=== PATIENT | female | born 1975 | race Asian ===

== ENCOUNTER 2019-03-25 08:03 | Day surgery (SDC) | payer MEDICAID ==
[~2019-03-25 08:03] MED LIST: CEFAZOLIN 2 GM/50 ML (PMX) 50 ML IVPB; SOD CHLORIDE 0.9% 1,000 ML IV
[2019-03-25] MEDS ORDERED: MIDAZOLAM 1 MG/ML 2 ML INJ (12:11)
[2019-03-25] MEDS ORDERED: METOCLOPRAMIDE 10 MG INJ (12:22)
[2019-03-25] MEDS ORDERED: DESFLURANE 15 MIN (12:22)
[2019-03-25] MEDS ORDERED: EPHEDrine 25 MG/5 ML SYG (12:22)
[2019-03-25] MEDS ORDERED: CEFAZOLIN 1 GM INJ (12:22)
[2019-03-25] MEDS ORDERED: FENTAnyl 50 MCG/ML VIAL (12:22)
[2019-03-25] MEDS ORDERED: PROPOFOL 20 ML (12:22)
[2019-03-25] MEDS ORDERED: ONDANSETRON 4 MG INJ (12:23)
[2019-03-25] MEDS ORDERED: ONDANSETRON 4 MG INJ IV (12:30)
[2019-03-25] MEDS ORDERED: FENTAnyl 50 MCG/ML VIAL IV ×3 (12:30)
[2019-03-25] MEDS ORDERED: DIPHENHYDRAMINE 50 MG INJ IV (12:30)
[2019-03-25] MEDS ORDERED: HYDROmorphONE 1 MG/5 ML IV SYRINGE IV ×3 (12:30)
[2019-03-25] MEDS ORDERED: OXYCODONE/ACETAMINOPHEN (5/325) TAB PO ×2 (12:30)
[2019-03-25] MEDS ORDERED: MEPERIDINE 25 MG INJ IV (12:30)
[2019-03-25] MEDS: ISOSULFAN BLUE 1% 5 ML INJ SC (12:42)
[2019-03-25] MEDS ORDERED: HYDROmorphONE 2 MG/ML SYG (12:54)
[2019-03-25] MEDS ORDERED: HYDROCODONE/APAP (7.5/325) TAB PO (14:00)
== END 2019-03-25 16:00 | disposition home or self-care (01) ==
LOC: SDS 08:03
DX: D05.11 Intraductal carcinoma in situ of right breast (principal)
CPT/HCPCS: 19301; 84703; 88307; 88331